=== PATIENT | male | born 1955 | race Caucasian/White ===

== ENCOUNTER 2016-10-08 08:37 | Emergency (ER) | payer OTHER ==
[~2016-10-08] VITALS: Ht 182.9 cm; Wt 93.0 kg
--- NOTE | ~2016-10-08 | EKG ---
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
[2016-10-08 09:28] LABS: ABSOLUTE NEUTROPHILS 9.7 thou/uL (1.4-8.2); EOSINOPHILS 0.1 % (0.0-3.0); HEMATOCRIT 44.1 % (42.0-52.0); HEMOGLOBIN 15.6 gm/dL (14.0-18.0); LYMPHOCYTES 17.4 % (24.0-44.0); MCH 33.3 pg (26.0-34.0); MCHC 35.4 g/dL (28.0-37.0); MCV 94.1 fL (80.0-100.0); MONOCYTES 10.3 % (1.0-8.0); PLATELET COUNT 199 thou/uL (150-400); POLYS 71.2 % (36.0-66.0); RBC 4.69 mil/uL (4.50-6.00); RDW 13.4 % (10.5-14.5); WBC 13.7 thou/uL (4.0-11.0)
[2016-10-08 09:30] LABS: MANUAL DIFF NO
[2016-10-08 09:53] LABS: ANION GAP 10 mmol/L (7-16); BUN 22 mg/dL (7-18); CALCIUM 9.4 mg/dL (8.5-10.1); CHLORIDE 99 mmol/L (98-107); CO2 23 mmol/L (21-32); CREATININE 1.8 mg/dL (0.7-1.3); GLUCOSE 125 mg/dL (74-106); POTASSIUM 4.2 mmol/L (3.5-5.1); SODIUM 132 mmol/L (136-145)
[2016-10-08 10:03] LABS: TROPONIN-I < 0.04 ng/mL (<0.04-0.07)
[2016-10-08 10:05] LABS: NT-PRO BRAIN NAT PEPTIDE 10113 pg/mL (<300)
[2016-10-08] MEDS ORDERED: LASIX 20 MG TAB20 MG PO (10:41)
[2016-10-08 11:04] VITALS: BP 124/71
== END 2016-10-08 11:07 | disposition home or self-care (01) ==
LOC: ER 08:37
PROVIDERS: Nurse Practitioner
DX: I50.9 Heart failure, unspecified (principal); F10.99 Alcohol use, unspecified with unspecified alcohol-induced disorder; Z95.0 Presence of cardiac pacemaker; Z88.0 Allergy status to penicillin

== ENCOUNTER 2016-12-02 18:20 | Inpatient (IN) | payer OTHER ==
[~2016-12-02] VITALS: Ht 182.9 cm; Wt 90.1 kg
--- NOTE | ~2016-12-02 | EKG ---
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 : 1955 Requested By: Rebecca Gutierrez Order Number: [id number] MD: Bryant Minor Measurements Intervals [place] Rate: 75 P: 47 IN: 200 QRS: 268 QRSD: 151 T: 88 QT: 440 QTc: 492 Interpretive Statements Ventricular-paced rhythm No further analysis attempted due to paced rhythm Compared to ECG 10/08/2016 09:03:44 no significant change was found Electronically Signed On 12-03-2016 16:21:20 CDT by Bryant Minor [email or web address] <ELECTRONICALLY SIGNED> By: Bryant Minor MD, [facility] 12/03/16 1621 31 31 Bryant Minor MD, [facility] /EPI
[~2016-12-02 18:20] MED LIST: LASIX 20 MG TAB20 MG PO
[2016-12-02 18:56] VITALS: BP 88/62
[2016-12-02 19:33] LABS: ABSOLUTE NEUTROPHILS 4.7 thou/uL (1.4-8.2); BASOPHILS 0.8 % (0.0-2.0); EOSINOPHILS 3.4 % (0.0-3.0); HEMATOCRIT 45.3 % (42.0-52.0); HEMOGLOBIN 15.9 gm/dL (14.0-18.0); LYMPHOCYTES 37.1 % (24.0-44.0); MCH 32.4 pg (26.0-34.0); MCHC 35.1 g/dL (28.0-37.0); MCV 92.3 fL (80.0-100.0); MONOCYTES 8.6 % (1.0-8.0); PLATELET COUNT 232 thou/uL (150-400); POLYS 50.1 % (36.0-66.0); RBC 4.91 mil/uL (4.50-6.00); RDW 14.2 % (10.5-14.5); WBC 9.4 thou/uL (4.0-11.0)
[2016-12-02 19:37] LABS: MANUAL DIFF NO
[2016-12-02] MEDS ORDERED: PRINIVIL10 MG PO (19:46)
[2016-12-02] MEDS ORDERED: CARVEDILOL3.125 MG PO (19:46)
[2016-12-02] MEDS ORDERED: LEVOTHYROXINE100 MC1 PO (19:46)
[2016-12-02] MEDS ORDERED: PRADAXA150 MG PO (19:46)
[2016-12-02 19:47] LABS: ANION GAP 13 mmol/L (7-16); BUN 14 mg/dL (7-18); CHLORIDE 98 mmol/L (98-107); CO2 22 mmol/L (21-32); CREATININE 1.5 mg/dL (0.7-1.3); GLUCOSE 90 mg/dL (74-106); SODIUM 133 mmol/L (136-145)
[2016-12-02 19:55] LABS: ALBUMIN 3.9 g/dL (3.4-5.0); ALKALINE PHOSPHATASE 76 U/L (46-116); SGOT 13 U/L (15-37); SGPT 16 U/L (30-65); TOTAL BILIRUBIN 0.6 mg/dL (<0.1-1.0); TOTAL PROTEIN 8.2 g/dL (6.4-8.2); TROPONIN-I < 0.04 ng/mL (<0.04-0.07)
[2016-12-02 22:05] VITALS: BP 91/50
[2016-12-02 22:08] LABS: URINE BILIRUBIN NEGATIVE (Negative); URINE BLOOD NEGATIVE (Negative); URINE COLOR YELLOW; URINE GLUCOSE-RANDOM* NEGATIVE (Negative); URINE KETONES NEGATIVE (Negative); URINE NITRITE NEGATIVE (Negative); URINE PROTEIN (DIPSTICK) NEGATIVE (Negative); URINE UROBILINOGEN 0.2 E.U./dl (0.2-1.0)
[2016-12-02 22:27] LABS: AMP/METHAMP Negative (Negative); BARBITURATES Negative (Negative); BENZODIAZEPINES Negative (Negative); COCAINE Negative (Negative); METHADONE Negative (Negative); OPIATES Negative (Negative); PCP Negative (Negative); THC Negative (Negative)
[2016-12-02 22:40] VITALS: BP 91/65
[2016-12-03 04:45] VITALS: BP 123/60
[2016-12-03 05:49] LABS: CALCIUM 8.5 mg/dL (8.5-10.1); CREATININE 1.2 mg/dL (0.7-1.3); HEMATOCRIT 40.4 % (42.0-52.0); MCH 31.6 pg (26.0-34.0); MCV 92.8 fL (80.0-100.0); POTASSIUM 4.2 mmol/L (3.5-5.1); RBC 4.35 mil/uL (4.50-6.00); RDW 14.2 % (10.5-14.5); WBC 8.3 thou/uL (4.0-11.0)
[2016-12-03 05:52] LABS: HEMOGLOBIN 13.7 gm/dL (14.0-18.0)
[2016-12-03 07:52] VITALS: BP 86/63
[2016-12-03 16:17] VITALS: BP 92/71
[2016-12-03 19:50] VITALS: BP 91/65
[2016-12-04 02:24] VITALS: BP 96/69
[2016-12-04 08:30] VITALS: BP 88/73
== END 2016-12-04 12:30 | disposition home or self-care (01) | DRG 315 ==
LOC: ER 18:20 → EROBS 20:49 → 4S 20:49
PROVIDERS: Nurse Practitioner Acute Care; Physician Assistant
DX: I95.9 Hypotension, unspecified (principal); I50.22 Chronic systolic (congestive) heart failure; I42.0 Dilated cardiomyopathy; E03.9 Hypothyroidism, unspecified; I48.91 Unspecified atrial fibrillation; N18.3 Chronic kidney disease, stage 3 (moderate); F17.210 Nicotine dependence, cigarettes, uncomplicated; F10.10 Alcohol abuse, uncomplicated; K02.9 Dental caries, unspecified; S00.83XA Contusion of other part of head, initial encounter; W18.39XA Other fall on same level, initial encounter; Y93.89 Activity, other specified; Y92.89 Other specified places as the place of occurrence of the external cause; Z88.0 Allergy status to penicillin; Y99.8 Other external cause status; Z86.73 Personal history of transient ischemic attack (TIA), and cerebral infarction without residual deficits; Z80.9 Family history of malignant neoplasm, unspecified; Z82.49 Family history of ischemic heart disease and other diseases of the circulatory system; Z71.41 Alcohol abuse counseling and surveillance of alcoholic; Z95.810 Presence of automatic (implantable) cardiac defibrillator
CPT/HCPCS: 10100